=== PATIENT | male | born 1995 | race Caucasian/White ===

== ENCOUNTER 2025-09-25 13:19 | Emergency (ER) | payer SELFPAY ==
[~2025-09-25] VITALS: Ht 177.8 cm; Wt 75.0 kg
[2025-09-25 13:36] VITALS: O2SAT 100
[2025-09-25 15:51] LABS: CLARITY URINE CLEAR (CLEAR); COLOR URINE YELLOW (YELLOW); GLUCOSE URINE NEGATIVE (NEGATIVE); KETONES URINE 2+ (NEGATIVE); PH URINE 6.0 (4.5-8.0); PROTEIN URINE NEGATIVE (NEGATIVE); SPECIFIC GRAVITY URINE 1.028 (1.005-1.030)
[2025-09-25 15:52] LABS: LEUKOCYTE ESTERASE URINE NEGATIVE (NEGATIVE); NITRITE URINE NEGATIVE (NEGATIVE); OCCULT BLOOD URINE NEGATIVE (NEGATIVE); UROBILINOGEN URINE 0.2 E.U./dL (0.2-1.0)
[2025-09-25 16:29] LABS: BACTERIA URINE NONE SEEN; RBC URINE NONE SEEN /hpf (0-2); SQUAMOUS EPITHELIAL CELL URINE RARE /lpf (RARE/1+); WBC URINE NONE SEEN /hpf (0-2)
[2025-09-25] MEDS ORDERED: IBUP-2437 MT (18:21)
[2025-09-25 18:42] VITALS: BP 118/72; PULSE 83; RESP 18; TEMP 36.7; O2SAT 100
[2025-09-25] MEDS ORDERED: IOHEXOL-300 100 ML BOTTLE ONE (20:43)
== END 2025-09-25 18:45 | disposition home or self-care (01) ==
LOC: ER 13:19
DX: R10.31 Right lower quadrant pain (principal); Z98.890 Other specified postprocedural states
CPT/HCPCS: 99285; 74176; 76857; 81003; Q9967